=== PATIENT | female | born 1980 | race Caucasian/White ===

== ENCOUNTER 2020-08-16 20:18 | Emergency (ER) | payer MEDICARE, SELFPAY ==
[2020-08-16 20:27] VITALS: BP 129/87; PULSE 116; RESP 18; TEMP 36.3; O2SAT 96
--- NOTE | 2020-08-16 23:43 | ED.WOUNDLAC ---
HPI - Wound/Laceration General Chief Complaint: Wound/Laceration Stated Complaint: finger lac Time Seen by Provider: 08/16/20 23:33 Source: patient Mode of arrival: ambulatory Limitations: no limitations History of Present Illness HPI narrative: Patient is a 40-year-old female complaining of a cut on her right pinky finger after getting it caught on her dog's leash. Patient denies any other pain or injury. Related Data Allergies Allergy/AdvReac Type Severity Reaction Status Date / Time hydrocodone Allergy Mild Swelling Verified 08/16/20 23:17 codeine Allergy Unknown Swelling Verified 08/16/20 23:17 Review of Systems Review of Systems: All systems reviewed & are unremarkable except as noted in HPI and below PMFSH Family History Family History Mother Depression Father Family history of coronary artery disease Grandparent Family history of type 2 diabetes mellitus Sibling Family history of renal cell carcinoma Patient's sister is Social History Social History Smoking status: Never smoker Alcohol intake: never Exam Const: General: no acute distress and alert Orientation/consciousness: patient oriented x3 HENMT: Head: normal to inspection Eyes: Conjunctivae: conjunctivae normal Neck: Neck: normal visual inspection Resp: Effort & Inspection: normal respiratory effort Skin: General skin exam: normal color, no jaundice and no pallor Extrem: General: no clubbing, cyanosis or edema Other: 3 cm laceration palmar aspect of the fifth digit right hand, neurovascular is intact Course Vital Signs Vital signs: Vital Signs Temperature 36.3 C L 08/16/20 20:27 Pulse Rate 116 H 08/16/20 20:27 Respiratory Rate 18 08/16/20 20:27 Blood Pressure 129/87 08/16/20 20:27 Pulse Oximetry 96 08/16/20 20:27 Temperature 36.3 C L 08/16/20 20:27 Pulse Rate 116 H 08/16/20 20:27 Respiratory Rate 18 08/16/20 20:27 Blood Pressure 129/87 08/16/20 20:27 Pulse Oximetry 96 08/16/20 20:27 Procedures Laceration Laceration 1: Date: 08/16/20 Time: 23:44 Site: hand Side (If applicable): right Size (cm): 4 Description: stellate Depth: simple, single layer Local Anesthetic: lidocaine 1% Amount of anesthesia used (mL): 6 Pre-repair: wound explored and irrigated ====== Skin Level ====== Skin layer closed with: prolene Size (cm): 4-0 Number of sutures: 5 Technique: simple, interrupted ====== Subcutaneous Layer ====== ====== Muscle Layer ====== ====== Tendon Layer ====== Discharge Plan Discharge Clinical Impression: Laceration of finger Qualifiers: Encounter type: initial encounter Finger: little finger Damage to nail status: without damage Foreign body presence: without foreign body Laterality: right Qualified Code(s): S61.216A - Laceration without foreign body of right little finger without damage to nail, initial encounter Patient Disposition: Home, Self-Care Condition: Improved Instructions: Care For Your Stitches (ED) Additional Instructions: SUTURE REMOVAL IN 10 DAYS Follow-up/Referrals: UNKNOWN,DOCTOR [Primary Care Provider] - 08/19/20 Time of Disposition: 00:12
[2020-08-17 00:52] VITALS: BP 121/69; PULSE 82; RESP 18; O2SAT 97
== END 2020-08-17 00:54 | disposition home or self-care (01) ==
PROVIDERS: Emergency Provider Emergency Medicine
DX: S61.216A Laceration without foreign body of right little finger without damage to nail, initial encounter (principal); W23.1XXA Caught, crushed, jammed, or pinched between stationary objects, initial encounter; Y93.K1 Activity, walking an animal
CPT/HCPCS: 12002; 99282